=== PATIENT | female | born 1935 | race Caucasian/White ===

== ENCOUNTER 2017-08-04 20:18 | Emergency (ER) | payer MEDICARE ==
--- NOTE | 2017-08-04 20:30 | Emergency Department Record ---
History of Present Illness - General Chief Complaint: Chest Pain Stated Complaint: CHEST HEAVINESS Time Seen by Provider: 08/04/17 20:27 Source: Patient, Family Mode of Arrival: Ambulatory Limitations: No limitations - History of Present Illness Initial Comments: 81 yo female presents with chest discomfort. The initial onset was yesterday. At bedtime last night she had about 30 minutes of mid chest pressure. The discomfort resolved with rest. She slept through the night without discomfort. Today she had the pressure return. She has noted that walking does cause shortness of breath and pressure. The symptoms do resolve with rest. She reports a history of CAD with stent. 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 She has not seen him in 3 years. She states he is at [facility]. PCP is Dr Delacruz. She did not take an aspirin today prior to arrival. She is not having any symptoms at this time. One PVC noted on monitor. No radiation of the pain. 0/10 at this time MD Complaint: Chest pain -: Days(s) (1) Onset: During exertion, During rest Pain Location: Substernal Pain Radiation: None Severity: Moderate Consistency: Intermittent Improves With: Rest Worsens With: Exertion Context: Other Anginal Symptoms: Dyspnea Treatments Prior to Arrival: None - Related Data Home Medications Medication Instructions Recorded Confirmed Last Taken Albuterol Sulfate [Proair Hfa] 1 - 2 puff IH .EVERY 4-6 HOURS PRN 08/04/1708/04 Unknown Donepezil HCl [Aricept] 10 mg PO DAILY 08/04/17 08/04/17 Unknown Metformin HCl 500 mg PO BID 08/04/17 08/04/17 Unknown Pravastatin Sodium [Pravachol] 40 mg PO DAILY 08/04/17 08/04/17 Unknown Ranitidine HCl 150 mg PO DAILY 08/04/17 08/04/17 Unknown Risperidone [Risperdal] 0.5 mg PO QHS 08/04/17 08/04/17 Unknown Warfarin Sodium 2.5 mg PO DAILY 08/04/17 08/04/17 Unknown Allergies Allergy/AdvReac Type Severity Reaction Status Date / Time salmeterol Allergy Unknown PT UNSURE Verified 08/04/17 20:25 OF REACTION timolol Allergy Unknown PT UNSURE Verified 08/04/17 20:25 OF REACTION Review of Systems Constitutional: Denies: Chills, Fever, Malaise, Weakness Eyes: Denies: Eye discharge ENT: Denies: Congestion, Throat pain Respiratory: Reports: Dyspnea. Denies: Cough Cardiovascular: Reports: Chest pain. Denies: Dyspnea on exertion, Edema, Palpitations, Syncope Endocrine: Denies: Fatigue Gastrointestinal: Denies: Abdominal pain, Diarrhea, Nausea, Vomiting Genitourinary: Denies: Dysuria, Frequency, Hematuria, Urgency Musculoskeletal: Denies: Arthralgia, Back pain, Neck pain Skin: Denies: Bruising, Change in color, Rash Neurological: Denies: Confusion, Headache, Numbness, Weakness Psychiatric: Denies: Anxiety Hematological/Lymphatic: Denies: Blood Clots, Easy bleeding, Easy bruising, Swollen glands Past Medical History - SOCIAL HISTORY Smoking Status: Never smoker Alcohol Use: None - RESPIRATORY Hx Respiratory Disorders: Yes Hx Bronchitis: Yes - CARDIOVASCULAR Hx Cardio Disorders: Yes Hx Cardiac Cath: Yes Hx Chest Pain: Yes Hx Coronary Artery Disease: Yes - NEURO Hx Neuro Disorders: No - GI Hx GI Disorders: No - Hx Genitourinary Disorders: No - ENDOCRINE Hx Endocrine Disorders: No Physical Exam - General General Appearance: Alert, Oriented x3, Cooperative, No acute distress Limitations: No limitations - Head Head exam: Atraumatic, Normal inspection - Eye Eye exam: Normal appearance. negative: Conjunctival injection, Scleral icterus - ENT ENT exam: Normal exam, Mucous membranes moist Ear exam: Normal external inspection Nasal Exam: Normal inspection Mouth exam: Normal external inspection - Neck Neck exam: Normal inspection, Full ROM. negative: Tenderness - Respiratory Respiratory exam: Normal lung sounds bilaterally. negative: Chest wall tenderness, Decreased breath sounds, Prolonged expiratory, Respiratory distress , Rhonchi, Stridor, Wheezes - Cardiovascular Cardiovascular Exam: Regular rate, Normal rhythm, Normal heart sounds Peripheral Pulses: 2+: Radial (R), Radial (L) - GI/Abdominal GI/Abdominal exam: Soft. negative: Tenderness - Rectal Rectal exam: Heme (-) stool. negative: Black stool, Bloody stool, Decreased rectal tone - exam: Deferred - Extremities Extremities exam: Normal inspection, Full ROM, Normal capillary refill. negative: Joint swelling, Pedal edema, Tenderness - Back Back exam: Reports: Normal inspection, Full ROM. Denies: CVA tenderness (R), CVA tenderness (L), Muscle spasm, Rash noted, Tenderness - Neurological Neurological exam: Alert, Normal gait, Oriented X3 - Psychiatric Psychiatric exam: Normal affect, Normal mood - Skin Skin exam: Dry, Intact, Normal color, Warm Course - Reevaluation(s) Reevaluation #1: 08/04/17 20:34 EKG 2027 NSR, rate 69 intervals normal, axis normal, ST NS changes artifact lateral. similar to 11/21/07 08/04/17 21:02 The CBC was reviewed. The hgb is low at 7.6. The prior Hgb was 10.6 in 2016. The MVC is normal at 93 08/04/17 21:11 Rectal examination completed. Heme negative 08/04/17 21:11 No acute changes on the CMP The Troponin is normal. There is no cardiology or GI at [facility] this weekend [facility] was contacted The patient is pain free 08/04/17 21:26 INR is 1.2 08/04/17 21:38 I discussed the case with Dr Lau of [facility] Hospitalist. He accepts the patient for transfer. Medical Decision Making - Lab Data Result diagrams: 08/04/17 20:20 08/04/17 20:20 Disposition Disposition: Transfer Clinical Impression: Chest pain Qualifiers: Chest pain type: unspecified Qualified Code(s): R07.9 - Chest pain, unspecified Anemia Qualifiers: Iron deficiency anemia type: unspecified iron deficiency Disposition: Acute Care Hospital Transfer Transfer To: [facility] Reason For Transfer: chest pain with anemia Accepting Physician: Sid Time Discussed w/Accepting Physician: 21:39 Condition: (2) Stable Forms: Patient Portal Access Time of Disposition: 21:04 Quality - Quality Measures Quality Measures: N/A - Blood Pressure Screening Does Patient Have Any of the Following: No Blood Pressure Classification: Pre-Hypertensive BP Reading Systolic Measurement: 131 Diastolic Measurement: 54 Screening for High Blood Pressure: < Pre-Hypertensive BP, F/U Documented > [ [id number]] Pre-Hypertensive Follow-up Interventions: Referral to alternative/primary care provider.
[2017-08-04] MEDS ORDERED: ASPIRIN 81 MG CHEWABLE TABLET PO ONE (20:44)
[2017-08-04 20:49] LABS: HEMATOCRIT 25.9 % (35.0-47.0); HEMOGLOBIN 7.6 gm/dl (11.6-16.0); MEAN CORPUSCULAR HGB CONC 29.3 g/dl (32-36); MONO % 9.6 % (0-9); RED CELL DISTRIBUTION WIDTH 15.6 % (11.5-14.5)
[2017-08-04 20:50] LABS: BASO % 0.2 % (0-6); EOS % 3.9 % (0-6); GRAN % 64.8 % (47-80); LYMPH % 21.5 % (16-45); MEAN CELL VOLUME 93.8 fl (81-97); MEAN CORPUSCULAR HEMOGLOBIN 27.5 pg (27-33); MEAN PLATELET VOLUME 10.2 fl (7.4-10.4); PLATELET COUNT 404 K/uL (130-400); RED BLOOD COUNT 2.76 M/uL (3.80-5.40); WHITE BLOOD COUNT W/O DIFF 8.6 K/uL (4.2-12.2)
[2017-08-04 20:54] LABS: BILIRUBIN,TOTAL < 0.20 mg/dL (0.2-1.0); BLOOD UREA NITROGEN 22 mg/dL (8-23); EST GLOMERULAR FILTRATION RATE 56 mL/min
[2017-08-04 20:55] LABS: INR 1.2; PARTIAL THROMBOPLASTIN TIME 32.5 SECONDS (24.5-39.1); TOTAL PROTEIN 6.6 g/dL (6.6-8.7)
[2017-08-04 20:57] LABS: GLUCOSE,RANDOM 164 mg/dL (74-109)
[2017-08-04 20:59] LABS: ALB/GLOB RATIO 1.2 (1.1-1.8); ALBUMIN 3.6 g/dL (4.0-5.0); ALT/SGPT 8 U/L (<33); AST/SGOT 17 U/L (10.0-35.0)
[2017-08-04 21:00] LABS: ALKALINE PHOSPHATASE 61 U/L (35-104); CREATINE PHOSPHOKINASE 77 U/L (26-192)
[2017-08-04 21:03] LABS: CKMB 2.6 ng/mL (<3.77)
--- NOTE | 2017-08-06 20:15 | RADIOLOGY REPORT ---
EXAM: CHEST 1 VIEW HISTORY: CHEST PAIN. TECHNIQUE: AP portable chest. COMPARISON: None. FINDINGS: Mild cardiomegaly. Lordotic positioning. No definite acute infiltrate seen. No pleural effusion or pneumothorax evident. IMPRESSION: MILD CARDIOMEGALY. NO DEFINITE ACUTE INFILTRATE SEEN. JOB NUMBER: [id number] MTDD
== END 2017-08-04 22:56 | disposition short-term general hospital (02) ==
LOC: ER 20:18
DX: R07.89 Other chest pain (principal); D50.9 Iron deficiency anemia, unspecified; R06.00 Dyspnea, unspecified; I25.10 Atherosclerotic heart disease of native coronary artery without angina pectoris; Z95.5 Presence of coronary angioplasty implant and graft
CPT/HCPCS: 71045; 80053; 82550; 82553; 84484; 85025; 85610; 85730; 93005; 93010; 99285